=== PATIENT | female | born 1965 | race Two or more races ===

== ENCOUNTER 2018-07-06 06:18 | Day surgery (SDC) | payer OTHER ==
[2018-06-28 18:57] VITALS: BMI 27.1
--- NOTE | 2018-07-06 08:28 | HP ---
History & Physical Update - History History: No Change - Physical Physical: No Change - Assessment Assessment: No Change - Plan Plan: No Change (no change since visit with Dr Christian on 06/14/18)
[2018-07-06] MEDS ORDERED: MIDAZOLAM HCL 2 MG/2 ML SINGLE DOSE VIAL ONE (08:36)
[2018-07-06] MEDS ORDERED: DEXAMETHASONE SOD PHOSPHATE/PF 10 MG/ML SDV ONE (08:37)
[2018-07-06] MEDS ORDERED: ROPIVACAINE HCL 0.5% 30ML VIAL ONE (08:37)
[2018-07-06] MEDS ORDERED: BUPIVACAINE HCL/EPINEPHRINE/PF 30 ML VIAL IJ ONE (08:54)
[2018-07-06] MEDS ORDERED: EPINEPHrine 1:1,000 1 MG/1 ML - 30ML VIAL (INJECTION) ONE (08:54)
[2018-07-06] MEDS ORDERED: PROPOFOL 20 ML ONE ×2 (09:14)
[2018-07-06] MEDS ORDERED: SODIUM CHLORIDE 0.9% P/F 10 ML VIAL IJ ONE (09:16)
[2018-07-06] MEDS ORDERED: ceFAZolin SODIUM 1 GM VIAL ONE (09:16)
[2018-07-06] MEDS ORDERED: ONDANSETRON 4 MG/2 ML VIAL ONE (09:16)
[2018-07-06] MEDS ORDERED: DEXAMETHASONE SOD PHOSPHATE 4 MG/1 ML VIAL ONE (09:16)
[2018-07-06] MEDS ORDERED: oxyCODONE HCL 10 MG SUSTAINED ACTING TABLET PO ONE (10:16)
[2018-07-06] MEDS ORDERED: oxyCODONE HCL 5 MG TABLET PO PRN ×2 (10:16→11:25)
--- NOTE | 2018-07-06 10:26 | OP ---
Operative Note - Note: Operative Date: 07/06/18 Pre-Operative Diagnosis: Right shoulder adhesive capsulitis. Right shoulder bursal adhesions Operation: RSA, capsulotomy. KOURTNEY. bursal debridement Post-Operative Diagnosis: Same as Pre-op Surgeon: Cricket Christian Anesthesiologist/[employer] SUPERVISOR: Duke Urban Anesthesia: Local
--- NOTE | 2018-07-06 10:27 | DS ---
Physical Examination Vital Signs: Vital Signs Temperature 98.0 F 07/06/18 07:28 Pulse Rate 70 07/06/18 07:28 Respiratory Rate 16 07/06/18 07:28 Blood Pressure 128/82 07/06/18 07:28 O2 Sat by Pulse Oximetry (%) 100 07/06/18 07:38 Discharge Summary Reason For Visit: RIGHT FROZEN SHOULDER, RTC TENDINOSIS Condition: Good - Instructions Diet, Activity, Other Instructions: Post Operative Instructions: Shoulder Arthroscopy Dr Cricket Christian 1. Pain following a Shoulder Arthroscopy is variable and can be significant. Some patients will have more pain than others. You have been provided with a prescription for medication that contains a narcotic. You are not allowed to drive while on this medication. You should NOT take Tylenol (Acetaminophen) when taking the pain medication ( it will result in an overdose). Feel free to take medications such as Ibuprofen or Naprosyn in addition to the pain medicine if you do not have any problems with the NSAID class of medications. 2. Apply ice to the shoulder for 15 minutes every hour. You may continue this for as many days as necessary. 3. You may find sleeping on an incline (reclining chair) to be more comfortable for the first few days. 4. You may remove your sling when the arm is comfortable. 5. You may use the arm as tolerated. 6. You may remove the bandages in 24 hours. You may shower at that point. 7. Place band-aids on the incisions after your shower.Do not put any creams or lotions on the incision until after the sutures are removed. 8. Please call the office to schedule a visit. 9. If for any reason you believe you may have an infection or are concerned, please feel free to call me. I can be reached through our office number 24 hours a day. 10. Please call our office with any questions; we will review the surgical findings during your post-operative visit. Disposition: HOME - Home Medications Comprehensive Discharge Medication List: Ambulatory Orders Multivitamins [Tab-A-Vit -] 1 tab PO DAILY 06/28/18 Omeprazole 40 mg PO PRN PRN 06/28/18
--- NOTE | 2018-07-06 10:41 | SURG ---
Surgery Residential Tech Note Residential Tech: Toshia Perry PA-C Date of Service: 07/06/18 Diagnosis: Right shoulder adhesive capsulitis. Right shoulder bursal adhesions Procedure: RSA, capsulotomy. KOURTNEY. bursal debridement I was present for the entirety of the operative procedure. For further detail, please refer to operative report. Visit type - Case Type Case Type: Scheduled - Emergency Emergency Visit: No - New patient This patient is new to me today: Yes Date on this admission: 07/06/18
[2018-07-06] MEDS ORDERED: ONDANSETRON 4 MG/2 ML VIAL IVPUSH PRN (11:25)
[2018-07-06] MEDS ORDERED: LACTATED RINGERS SOLUTION 1,000 ML IV SCH (11:30)
[2018-07-06 12:22] VITALS: BP 118/70; PULSE 70; TEMP 98
== END 2018-07-06 12:21 | disposition home or self-care (01) ==
LOC: FASU 06:18
PROVIDERS: ATTEND Orthopaedic Surgery
PROC: 0RBJ4ZZ Excision of Right Shoulder Joint, Percutaneous Endoscopic Approach (ICD-10-PCS; principal; 2018-07-06 10:01)
PROC: 0RNJXZZ Release Right Shoulder Joint, External Approach (ICD-10-PCS; 2018-07-06 10:01)
DX: M75.01 Adhesive capsulitis of right shoulder (principal); M75.51 Bursitis of right shoulder
CPT/HCPCS: 94760